=== PATIENT | female | born 1985 | race Caucasian/White ===

== ENCOUNTER → 2023-08-06 14:38 | Outpatient (REF) | payer BC, SELFPAY | LOC: HWRAD 14:38 | PROVIDERS: ATTENDING PHYSICIAN Nurse Practitioner Family | DX: M25.512 Pain in left shoulder (principal) | CPT/HCPCS: 73030 ==

== ENCOUNTER → 2023-10-24 13:40 | Outpatient (REF) | payer BC, SELFPAY | LOC: WDC 13:40 | PROVIDERS: ATTENDING PHYSICIAN Nurse Practitioner Family | DX: R92.8 Other abnormal and inconclusive findings on diagnostic imaging of breast (principal) | CPT/HCPCS: 76642 ==

== ENCOUNTER → 2023-12-20 08:02 | Outpatient (REF) | payer BC, SELFPAY | LOC: HWRAD 08:02 | PROVIDERS: ATTENDING PHYSICIAN Nurse Practitioner Family | DX: M54.50 Low back pain, unspecified (principal) | CPT/HCPCS: 72110 ==

== ENCOUNTER 2024-02-29 09:10 | Emergency (ER) | payer BC, SELFPAY ==
[2024-02-29 09:15] VITALS: BP 127/76
--- NOTE | 2024-02-29 10:04 | ED.GENMED ---
History of Present Illness
<Susanna Carballo PA-C - Last Filed: 02/29/24 18:03>
General
Chief Complaint: Problems
Source: patient
Exam Limitations: none
Time Seen by Provider: 02/29/24 10:01
Nursing documentation reviewed up to this point in time: agreed with
History of Present Illness
History of Present Illness:
39-year-old G2, P1 female with a past medical history of retained placenta presenting the emergency department today with concerns of vaginal bleeding and intermittent cramping for the past few days. Patient reports that this was
conceived through IVF but she also has 1 living child. Patient reports that she started to have bleeding and cramping and saw her fertility doctor Dr. Law who did ultrasound and noted a miscarriage approximately 5 days ago. She did receive
Cytotec 5 days ago. Patient states that she continued to have bleeding and passage of clots and this eventually subsided 3 days ago where she had a repeat ultrasound done which showed an empty uterus with a clots. She reports that yesterday, the
bleeding returned and got a lot worse and she started to have intermittent spells of dizziness and lightheadedness as well as shortness of breath. Patient does not have this constellation of symptoms currently but she states that they will come
intermittently. Patient denies cough, chest pain, upper respiratory symptoms, headache. Patient denies any syncopal episodes.
Review of Systems
<Susanna Carballo PA-C - Last Filed: 02/29/24 18:03>
Review of Systems
All Other Systems: ROS reviewed and negative except as documented in HPI and ROS
Phy Exam
<Susanna Carballo PA-C - Last Filed: 02/29/24 18:03>
Physical Exam
Physical Exam:
General: Patient is well appearing and in no acute distress; non-toxic
Skin: Warm and dry, no rashes or lesions
Head: Normocephalic, atraumatic
Eyes: Sclera non-icteric. EOMs intact. PERRLA.
Cardiac: Regular rate and rhythm, no murmurs
Peripheral Vascular: No lower extremity swelling or edema
Pulm: Normal respiratory effort, no wheezes, rales, rhonchi
Abdomen: No abdominal tenderness to palpation
Neuro: CN II-XII intact, no focal neurologic deficits.
Psychiatric: Appropriate mood and affect.
Course
<Susanna Carballo PA-C - Last Filed: 02/29/24 18:03>
Orders/Labs/Results
Orders:
Orders
02/29/24 10:29
US Pelvis W Transvag Combined Urgent
Comment:
Reason For Exam: misarriage mond, continued pain/bleeding
02/29/24 10:56
Beta HCG Quantitative Urgent
Is this a screen?: No
Complete Blood Count/With Diff Urgent
Comprehensive Metabolic Panel Urgent
02/29/24 11:03
Electrocardiogram (*1) Urgent
Reason for Study: Vertigo / Dizzy
EKG- Treatment ONCE
02/29/24 11:44
Type+Screen Urgent
BBK Wristband Number:
Abnormal Lab Results
02/29/24
10:56
RBC 3.70 L 10^6/uL
(4.20-5.40)
Hgb 11.3 L g/dL
(12.0-16.0)
Hct 31.7 L %
(37.0-47.0)
Absolute Neuts (auto) 6.6 H 10^3/uL
(1.4-6.5)
Absolute Lymphs (auto) 0.6 L 10^3/uL
(1.2-3.4)
Neutrophils % 87.3 H %
(42.2-75.2)
Lymphocytes % 7.9 L %
(20.5-51.1)
Alkaline Phosphatase 29 L U/L
(38-126)
02/29/24 10:56
02/29/24 10:56
Vital Signs
Initial and Last Documented VS:
Initial Vital Signs
Temp Pulse Resp BP Pulse Ox
99.8 F 92 16 127/76 100
02/29/24 09:15 02/29/24 09:15 02/29/24 09:15 02/29/24 09:15 02/29/24 09:15
Last Documented Vital Signs
Temp Pulse Resp BP Pulse Ox
99.8 F 80 18 95/56 99
02/29/24 09:15 02/29/24 14:53 02/29/24 14:53 02/29/24 14:53 02/29/24 14:53
Information
Weeks gestation: N/A
Location: N/A
<Christopher Craft MD - Last Filed: 02/29/24 14:11>
Orders/Labs/Results
Orders:
Orders
02/29/24 10:29
US Pelvis W Transvag Combined Urgent
Comment:
Reason For Exam: misarriage mond, continued pain/bleeding
02/29/24 10:56
Beta HCG Quantitative Urgent
Is this a screen?: No
Complete Blood Count/With Diff Urgent
Comprehensive Metabolic Panel Urgent
02/29/24 11:03
Electrocardiogram (*1) Urgent
Reason for Study: Vertigo / Dizzy
EKG- Treatment ONCE
02/29/24 11:44
Type+Screen Urgent
BBK Wristband Number:
Abnormal Lab Results
02/29/24
10:56
RBC 3.70 L 10^6/uL
(4.20-5.40)
Hgb 11.3 L g/dL
(12.0-16.0)
Hct 31.7 L %
(37.0-47.0)
Absolute Neuts (auto) 6.6 H 10^3/uL
(1.4-6.5)
Absolute Lymphs (auto) 0.6 L 10^3/uL
(1.2-3.4)
Neutrophils % 87.3 H %
(42.2-75.2)
Lymphocytes % 7.9 L %
(20.5-51.1)
Alkaline Phosphatase 29 L U/L
(38-126)
02/29/24 10:56
02/29/24 10:56
Vital Signs
Initial and Last Documented VS:
Initial Vital Signs
Temp Pulse Resp BP Pulse Ox
99.8 F 92 16 127/76 100
02/29/24 09:15 02/29/24 09:15 02/29/24 09:15 02/29/24 09:15 02/29/24 09:15
Last Documented Vital Signs
Temp Pulse Resp BP Pulse Ox
99.8 F 80 18 95/56 99
02/29/24 09:15 02/29/24 14:53 02/29/24 14:53 02/29/24 14:53 02/29/24 14:53
[place];Susanna Carballo PA-C - Last Filed: 02/29/24 18:03>
MDM/Problems Addressed
Differential Diagnosis Includes:
Differentials include miscarriage, retained products, bleeding disorder, vaginal abrasion/laceration
MDM/Problems Addressed:
39-year-old female G2, P1 with known miscarriage conceived through IVF presents to the emergency department today with vaginal bleeding for the past few days. Eventually started to subside this past week and she had an ultrasound noting the uterus
without a gestational sac. She then started to have a return of her bleeding, and noted intermittent spells of dizziness. Today on exam she is well-appearing in no acute distress, her vitals are stable. Will obtain blood work and type and screen,
will send for ultrasound.
Ultrasound reveals some thickening and slight heterogeneity of the endometrial cavity which may reflect hemorrhage or endometritis with retained products of conception being less likely. Patient has not had an episode of dizziness or
lightheadedness while here in the emergency department. Did discuss ultrasound findings with Dr. Law, patient's fertility doctor at [facility]. He is okay with patient being discharged without further intervention. Patient states that
she has a follow-up with the clinic next week. Patient is stable for discharge.
Chronic conditions affecting care:
n/a
Acute Exacerbation and/or Progression of Chronic Illness:
n/a
<Susanna Carballo PA-C - Last Filed: 02/29/24 18:03>
*Pulse Oximetry
Patient hypoxic: no
*EKG
Interpreted by ED Provider?: Yes
EKG Intrepretation Date: 02/29/24
Interpretation: normal
Comparison EKG: no comparison EKG present
Heart Rate: 69
Rate: normal
Rhythm: sinus
[place]: normal axis
Interval: normal interval
QRS Pattern: normal QRS
Ischemia: no ischemia
*Critical Care Note
Total Time (30-74mins, 75-104mins- exclusive of procedures): Not Applicable
Data Reviewed
Review of Other/Old Records Reveals: Records (Reviewed discharge summary from 07/28/2020, patient had vaginal delivery with retained placenta)
Source: patient and records
Prescriptions/Medications Considered But Not Given:
N/A
Further Testing Considered But Not Given:
N/A
<Susanna Carballo PA-C - Last Filed: 02/29/24 18:03>
Patient Management
Escalation/DeEscalation of care consider admission/obs:
Admit not indicated, patient stable for discharge
ED Attending Note
<Susanna Carballo PA-C - Last Filed: 02/29/24 18:03>
-
Portions of this chart may have been created with voice recognition software.� Occasional wrong word or��sound alike� substitutions may have occurred due to the inherent limitations of voice recognition software.
<Christopher Craft MD - Last Filed: 02/29/24 14:11>
ED Attending Note
Patient seen and examined by attending physician: Yes
I performed the substantive portion of visit, reviewed & personally made and approve the management plan that is documented in note by myself or HOLA.: Yes
ED Attending Note:
39-year-old female complaining of increased vaginal bleeding. Recent IVF. Had a miscarriage. Increased bleeding and pain overnight. Episode of lightheadedness and near syncope this morning x 3. Currently feeling better. Bleeding is decreased.
On exam patient is nontoxic in no distress. Warm and dry. Perfusing well. Lungs clear and equal. Heart regular rate and rhythm. Abdomen soft and nontender.
Patient is clinically stable and nontoxic. Labs are stable. EKG is stable. Ultrasound shows some thickening but with decreasing quantitative hCGs and patient feeling well patient can be discharged to follow-up. We will try to contact their
provider
Discharge Plan
Departure
Patient Disposition: Home (Routine Discharge)
Date of Disposition: 02/29/24
Time of Disposition: 14:08
Patient with high blood pressure during this ER visit?: Yes
Condition: Good
Discharge Problem:
Vaginal bleeding
Instructions: Miscarriage (DC), BLOOD PRESSURE
Prescriptions:
No Action
[id number] acid [ Multi] 1 EACH tablet
1 ea PO DAILY
ibuprofen 600 MG tablet
600 mg PO Q4HPRN PRN (Reason: moderate pain/cramps) Qty: 90 0RF
Referrals:
Farrukh Lord CRNP [Family Provider] -
Activity Restrictions/Additional Instructions:
Please return to the emergency department should you experience syncopal episodes, further episodes of dizziness, lightheadedness, fevers or chills, increasing abdominal pain, or any other signs or symptoms concerning to you.
Please follow-up with your OBGYN next week as scheduled.
Please follow-up with your primary care provider.
Interventions
Interventions:
*Risk Screen - Suicide Last Done: 02/29/24 09:15
*General Assessment Last Done: 02/29/24 09:15
*Neglect/Abuse Screening Last Done: 02/29/24 09:15
*ED COVID-19 Vaccine History Last Done: 02/29/24 10:57
*Nursing Disposition Last Done: 02/29/24 14:53
ED-Female Genitourinary Assessment Last Done: 02/29/24 13:00
Discharge Date and Time
Discharge Date/Time: 02/29/24 14:30
Print Language: K[place]
[2024-02-29 10:34] VITALS: BMI 24.5
[2024-02-29 11:03] VITALS: BP 109/64
[2024-02-29 11:05] LABS: % Basophils 0.7 % (0-2); % Eosinophils 0.5 % (0-6); % Immature Granulocytes 0.3 % (0-0.5); % Lymphocytes 7.9 % (20.5-51.1); % Monocytes 3.3 % (1.7-9.3); % Neutrophils 87.3 % (42.2-75.2); Absolute Basophils 0.1 10^3/uL (0-0.2); Absolute Lymphocytes 0.6 10^3/uL (1.2-3.4); Absolute Monocytes 0.3 10^3/uL (0.1-0.6); Absolute Neutrophils 6.6 10^3/uL (1.4-6.5); Hematocrit 31.7 % (37.0-47.0); Hemoglobin 11.3 g/dL (12.0-16.0); Mean Corp Hgb Conc. 35.6 g/dL (33.0-37.0); Mean Corpuscular Hgb 30.5 pg (27.0-31.0); Mean Corpuscular Volume 85.7 fL (81.0-99.0); Mean Platelet Volume 10.1 fL (7.4-10.4); Nucleated Red Blood Cells % 0 %; Platelet Count 232 10^3/uL (130-400); Red Cell Dist. Width 12.4 % (11.5-14.5); White Blood Cell Count 7.6 10^3/uL (4.8-10.8)
[2024-02-29 11:17] LABS: ALT (SGPT) 12 U/L (0-35); AST (SGOT) 22 U/L (14-36); Albumin 4.1 g/dl (3.5-5.0); Alkaline Phosphatase 29 U/L (38-126); Blood Urea Nitrogen 14 mg/dl (7-17); Calcium 9.2 mg/dl (8.4-10.2); Carbon Dioxide 24 mmol/L (22-30); Chloride 106 mmol/L (98-107); Estimated Creatinine Clearance 120 ml/min; Glucose 86 mg/dl (70-99); Potassium 4.3 mmol/L (3.5-5.1); Sodium 142 mmol/L (135-145); Total Bilirubin 0.2 mg/dl (0.2-1.3); Total Protein 6.7 g/dl (6.3-8.2); eGFR > 60.00
[2024-02-29 13:44] VITALS: BP 99/59; BP 99/70
[2024-02-29 14:53] VITALS: BP 95/56
== END 2024-02-29 14:30 | disposition home or self-care (01) ==
LOC: EMR 09:10
PROVIDERS: Physician Assistant; EMERGENCY PHYSICIAN Emergency Medicine; FAMILY PHYSICIAN Nurse Practitioner Family
DX: N93.9 Abnormal uterine and vaginal bleeding, unspecified (principal); Z87.59 Personal history of other complications of pregnancy, childbirth and the puerperium
CPT/HCPCS: 99284; 76830; 76856; 80053; 84702; 85025; 86850; 86900; 86901; 93005

== ENCOUNTER 2024-03-11 22:26 | Observation (INO) | payer BC, SELFPAY ==
[2024-03-11] VITALS (7 sets, daily range): BP systolic 88–122; BP diastolic 57–83; BMI 24.4
[2024-03-11 21:12] LABS: Hematocrit 17.6 % (37.0-47.0); Hemoglobin 6.3 g/dL (12.0-16.0); Mean Corp Hgb Conc. 35.8 g/dL (33.0-37.0); Mean Corpuscular Volume 83.8 fL (81.0-99.0); Mean Platelet Volume 9.6 fL (7.4-10.4); Platelet Count 324 10^3/uL (130-400)
[2024-03-11] MEDS: LR 1000 IV (21:18)
--- NOTE | 2024-03-11 21:24 | ED.GENMED ---
History of Present Illness
General
Chief Complaint: Vaginal Bleeding
Source: patient and records
Exam Limitations: none
Time Seen by Provider: 03/11/24 20:52
Nursing documentation reviewed up to this point in time: agreed with
History of Present Illness
History of Present Illness:
39-year-old female presents emergency department complaining of vaginal bleeding ongoing for the past 2 weeks, but worse over the past day. She is passing clots. It has gotten heavier over the past several hours. She had near fainting episodes.
Past History
Past History
ED Past Surgical History: Gynecological (egg retrieval, placenta removal)
Social History
Tobacco: Non-smoker
Alcohol: None
Drug: None
Personal:
Living: with family
Review of Systems
Review of Systems
Allergies reviewed?: Yes
All Other Systems: Not applicable
Constitutional: Reports fatigue
EENT: Reports no symptoms
Respiratory: Reports no symptoms
Cardiac: Reports syncope
ABD/GI: Reports no symptoms
: Reports no symptoms
Musculoskeletal: Reports no symptoms
Skin: Reports no symptoms
Neurological: Reports no symptoms
Endocrine: Reports no symptoms
Hematologic/Lymphatic: Reports bleeding
Psychiatric: Reports no symptoms
Phy Exam
Physical Exam
Physical Exam:
Physical Exam
General: Appears uncomfortable
Neck: supple. no meningeal signs. normal posterior pharynx
Heart: s1/s2 tachycardia, no murmur. equal radial
pulses.
HEENT: Pupils equal round reactive to light, EOMI
Lungs: no acute respiratory distress. clear bilaterally
Abdomen: normal bowel sounds. not tender. no CVAT
Neuro: alert and oriented. no focal neurological deficits cranial nerves II through XII intact
Skin: no rash, pale
Psychiatric: well kept. interactive and cooperative
Extremities: no edema. no calf tenderness. negative homans. good distal pulses
Genitourinary Exam Female
Exam Female: vaginal bleeding
Vaginal Exam: blood
Vaginal Bleeding: clots and severe
Visual exam of cervix: other (Unable to visualize due to bleeding)
Course
Orders/Labs/Results
Orders:
Orders
03/11/24 20:50
Electrocardiogram (*1) Urgent
Reason for Study: Tachycardia
EKG- Treatment ONCE
03/11/24 20:57
Test Result ONCE
03/11/24 20:58
HCG, Beta Quantitative [Beta HCG Quantitative] Urgent
Is this a screen?: No
03/11/24 20:59
Type+Screen Urgent
Complete Blood Count/No Diff Urgent
Comprehensive Metabolic Panel Urgent
03/11/24 21:11
Blood Bank Products [* Blood Bank Products] Urgent
Dr's Orders: 1 unit prbcs
Blood Bank Products: *Packed RBC Leuko(PRBC's)
Quantity: 1
Transfuse Today: Yes
Reason: Bleeding
03/11/24 21:17
Lactated Ringers [Lr] 1,000 ml IV BOLUS
03/11/24 22:00
Lactated Ringers [Lr] 1,000 ml IV 1,000 mls/hr
Abnormal Lab Results
03/11/24
20:59
RBC 2.10 L 10^6/uL
(4.20-5.40)
Hgb 6.3 L* g/dL
(12.0-16.0)
Hct 17.6 L* %
(37.0-47.0)
03/11/24 20:59
Vital Signs
Initial and Last Documented VS:
Initial Vital Signs
Pulse Resp BP Pulse Ox
117 19 96/82 100
03/11/24 20:50 03/11/24 20:50 03/11/24 20:50 03/11/24 20:50
Last Documented Vital Signs
Temp Pulse Resp BP Pulse Ox
99.6 F 117 19 96/82 100
03/11/24 20:57 03/11/24 20:50 03/11/24 20:50 03/11/24 20:50 03/11/24 20:50
MDM/Problems Addressed
Differential Diagnosis Includes:
Hemorrhagic shock, retained products
MDM/Problems Addressed:
39-year-old female with severe vaginal bleeding, possibly due to retained products. I spoke with METERS SUPERINTENDENT Dr. Newberry via [place] text for her to see patient in ED. Patient will likely need a D&C. 1 unit packed red blood cells ordered.
*Pulse Oximetry
Patient hypoxic: no
*EKG
Interpreted by ED Provider?: Yes
EKG Intrepretation Date: 03/11/24
EKG Intrepretation Time: 20:56
Interpretation: abnormal
Comparison EKG: changes noted
Heart Rate: 112
Rate: tachycardiac
Rhythm: sinus tachycardia
[place]: normal axis
Interval: normal interval
QRS Pattern: normal QRS
Ischemia: no ischemia
*Civil Engineering Draftsperson Interpretation
Rate: tachycardiac
Interpretation: abnormal
Heart Rate: 120
Rhythm: sinus tachycardia
*Critical Care Note
Total Time (30-74mins, 75-104mins- exclusive of procedures): 45
comment:
Critical care statement: A total of 45 minutes of critical care time was provided for this patient. This includes management of unstable vital signs, evaluation of the patient at bedside, reviewing the patient's pertinent medical records, discussion
with consultants, review of old EKGs and review of pertinent medical records. This time with separate from time utilized to perform the aforementioned documented procedures
Data Reviewed
Further Testing Considered But Not Given:
Ultrasound considered, patient with hypotension likely needing D&C.
Patient Management
Social determinants of health affecting care: Living situation and Strong social support
Discussion with other providers: Jacquard Loom Card Changer (METERS SUPERINTENDENT, Dr. Newberry)
Escalation/DeEscalation of care consider admission/obs:
Admit indicated
ED Attending Note
-
Portions of this chart may have been created with voice recognition software.� Occasional wrong word or��sound alike� substitutions may have occurred due to the inherent limitations of voice recognition software.
Discharge Plan
Departure
Patient Disposition: Admit
Date of Disposition: 03/11/24
Time of Disposition: 21:30
Presentation/result/management discussed w/ accepting MD/DO: Area Forester, Dr. Newberry
Patient with high blood pressure during this ER visit?: No
Condition: Fair
Discharge Problem:
Vaginal hemorrhage
Prescriptions:
No Action
[id number] acid [ Multi] 1 EACH tablet
1 ea PO DAILY
ibuprofen 600 MG tablet
600 mg PO Q4HPRN PRN (Reason: moderate pain/cramps) Qty: 90 0RF
Interventions
Interventions:
*Risk Screen - Suicide Last Done: 03/11/24 20:50
*General Assessment Last Done: 03/11/24 20:50
*Neglect/Abuse Screening Last Done: 03/11/24 20:50
ED-Female Genitourinary Assessment Last Done: 03/11/24 21:20
Discharge Date and Time
Print Language: CENTRAL AFRICAN
[2024-03-11 21:33] LABS: ALT (SGPT) 17 U/L (0-35); AST (SGOT) 30 U/L (14-36); Albumin 3.5 g/dl (3.5-5.0); Alkaline Phosphatase 31 U/L (38-126); Blood Urea Nitrogen 15 mg/dl (7-17); Calcium 8.7 mg/dl (8.4-10.2); Carbon Dioxide 20 mmol/L (22-30); Chloride 105 mmol/L (98-107); Estimated Creatinine Clearance 104 ml/min; Glucose 131 mg/dl (70-99); Potassium 3.7 mmol/L (3.5-5.1); Sodium 135 mmol/L (135-145); Total Bilirubin 0.1 mg/dl (0.2-1.3); Total Protein 5.7 g/dl (6.3-8.2); eGFR > 60.00
[2024-03-11 22:15] LABS: INR 1.05
--- NOTE | 2024-03-11 22:15 | W.SUR.PREOP ---
Pre-Operative Surgical Note
-
I have examined this patient prior to the performance of the procedure.
The patient's condition is unchanged from the time of the current History and
Physical and the patient is able to undergo the scheduled procedure.
H&P dictated (#[id number]).
Killian Newberry, DO
[2024-03-11 22:16] LABS: APTT 26.1 Sec (23.4-35.0)
[2024-03-12] VITALS (9 sets, daily range): BP systolic 84–109; BP diastolic 50–67
[2024-03-12] MEDS: LR 1000 IV (01:19)
--- NOTE | 2024-03-12 06:13 | PTCARENOTE ---
Pt BP at 0300 was 89/50, HR 69 pt had no vaginal bleeding, denied feeling lightheaded, and voided a total of 650 ml sine 0030. LR infusing at 100 ml/hr. Sent a message to Dr. Newberry, she was in the OR. At 0411, Dr. Newberry responded to draw morning
CBC at 0430. CBC drawn, sent to lab awaiting results. Pt verbalized she had a brief period of feeling lightheaded, but it resolved quickly. BP currently 95/59, HR 80.
[2024-03-12 06:32] LABS: % Basophils 0.3 % (0-2); % Immature Granulocytes 0.3 % (0-0.5); % Monocytes 0.7 % (1.7-9.3); % Neutrophils 92.7 % (42.2-75.2); Absolute Lymphocytes 0.5 10^3/uL (1.2-3.4); Absolute Monocytes 0.1 10^3/uL (0.1-0.6); Absolute Neutrophils 6.9 10^3/uL (1.4-6.5); Hematocrit 24.5 % (37.0-47.0); Hemoglobin 8.6 g/dL (12.0-16.0); Mean Corp Hgb Conc. 35.1 g/dL (33.0-37.0); Mean Corpuscular Hgb 30.9 pg (27.0-31.0); Mean Corpuscular Volume 88.1 fL (81.0-99.0); Mean Platelet Volume 10.1 fL (7.4-10.4); Nucleated Red Blood Cells % 0 %; Platelet Count 260 10^3/uL (130-400); Red Blood Cell Count 2.78 10^6/uL (4.20-5.40); Red Cell Dist. Width 12.2 % (11.5-14.5); White Blood Cell Count 7.5 10^3/uL (4.8-10.8)
--- NOTE | 2024-03-12 07:40 | W.PN.GYN ---
Today's Communication / Plan
-
-D/c home this morning
-iron, motrin, tylenol prn
-RTO 2wks. Limitations and Return precautions given.
Physician Note
-
This morning, pt doing much better. Bleeding is minimal. Not feeling dizzy or SOB. Has voided twice without issue. Not in pain.
VSS- BPs a little bit low overnight (see below), HR 70s-80s
Abd: soft, NTTP, ND
Extr: no calf ttp b/l
see labs below
A/P 39yo POD1 s/p suction D&C for acute hemorrhage from suspected retained POC after 1st trimester SAB.
Hgb improved this morning to 8.6, PLTs 260K. Asymptomtic.
-D/c home this morning
-iron, motrin, tylenol prn
-RTO 2wks. Limitations and Return precautions given.
Killian Newberry, DO
Vital Signs / Labs
-
Vital Signs and Labs:
Temp Pulse Resp BP Pulse Ox
98.1 F 80 16 95/59 100
03/12/24 06:00 03/12/24 06:00 03/12/24 06:00 03/12/24 06:00 03/12/24 00:15
03/12/24 04:50
03/11/24 20:59
03/11/24 03/12/24
20:59 04:50
RBC 2.10 L 2.78 L
Hgb 6.3 L* 8.6 L D
Hct 17.6 L* 24.5 L
Absolute Neuts (auto) 6.9 H
Absolute Lymphs (auto) 0.5 L
Neutrophils % 92.7 H
Lymphocytes % 6.0 L
Monocytes % 0.7 L
Carbon Dioxide 20 L
Glucose 131 H
Total Bilirubin 0.1 L
Alkaline Phosphatase 31 L
Total Protein 5.7 L
Crossmatch IS Only See Detail
--- NOTE | 2024-03-12 07:47 | W.DS.TRANS ---
DC Summary - Buckle Sewer Machine
-
Discharge Instructions:
Discharge Diagnosis/Procedures Suspected retained products of conception, s/p
Suction D&C; Acute hemorrhagic anemia, s/p blood
transfusion
Diet As tolerated,Regular
Activity Other activity
Additional Activity Nothing in the vagina until cleared by your
diamond sander. Avoid strenuous activity for the
next few days as you recover. Advance activity
as tolerated.
Driving Restrictions No driving for 1 week
Bathing Restrictions None
Instructions:
Stand-Alone Forms:
Changes to Home Medications: No
Discharge Medications:
DC Medications w/original date entered in [employer]
acetaminophen 325 mg tablet 650 mg (2 x 325 mg) PO Q4HPRN PRN mild pain #0 tabs 03/12/24
ferrous sulfate 325 mg (65 mg iron) tablet (FeroSul) 325 mg PO DAILY #0 tabs 03/12/24
ibuprofen 200 mg tablet 600 mg (3 x 200 mg) PO Q6HPRN PRN cramping/pain #0 tabs 03/12/24
Home Medication Changes
Pending Results: No
Total time spent discharging patient (in min): 20
[2024-03-12] MEDS: FEOSOL 325 MG PO (08:10)
== END 2024-03-12 09:09 | disposition home or self-care (01) ==
LOC: LDRP 22:26
PROVIDERS: ADMITTING PHYSICIAN Obstetrics & Gynecology; EMERGENCY PHYSICIAN Emergency Medicine
DX: O03.1 Delayed or excessive hemorrhage following incomplete spontaneous abortion (principal); N93.9 Abnormal uterine and vaginal bleeding, unspecified; R00.0 Tachycardia, unspecified; O03.31 Shock following incomplete spontaneous abortion; I95.9 Hypotension, unspecified; D62 Acute posthemorrhagic anemia
CPT/HCPCS: 59812; 36430; 88305; 76856; 80053; 84702; 85025; 85027; 85610; 85730; 86850; 86900; 86901; 86920; 93005; 96360; 99291; P9016

== ENCOUNTER → 2024-03-21 06:48 | Outpatient (REF) | payer BC, SELFPAY ==
[2024-03-21 09:31] LABS: % Basophils 2.1 % (0-2); % Eosinophils 6.8 % (0-6); % Immature Granulocytes 0.2 % (0-0.5); % Monocytes 8.9 % (1.7-9.3); Absolute Basophils 0.1 10^3/uL (0-0.2); Absolute Eosinophils 0.4 10^3/uL (0-0.7); Absolute Lymphocytes 1.6 10^3/uL (1.2-3.4); Absolute Monocytes 0.5 10^3/uL (0.1-0.6); Absolute Neutrophils 2.7 10^3/uL (1.4-6.5); Hematocrit 26.9 % (37.0-47.0); Hemoglobin 8.8 g/dL (12.0-16.0); Mean Corp Hgb Conc. 32.7 g/dL (33.0-37.0); Mean Corpuscular Hgb 28.8 pg (27.0-31.0); Mean Corpuscular Volume 87.9 fL (81.0-99.0); Mean Platelet Volume 9.8 fL (7.4-10.4); Nucleated Red Blood Cells % 0 %; Platelet Count 385 10^3/uL (130-400); Red Blood Cell Count 3.06 10^6/uL (4.20-5.40); Red Cell Dist. Width 12.9 % (11.5-14.5); White Blood Cell Count 5.3 10^3/uL (4.8-10.8)
[2024-03-21 09:57] LABS: ALT (SGPT) 14 U/L (0-35); AST (SGOT) 26 U/L (14-36); Albumin 3.9 g/dl (3.5-5.0); Alkaline Phosphatase 41 U/L (38-126); Blood Urea Nitrogen 11 mg/dl (7-17); Calcium 9.1 mg/dl (8.4-10.2); Carbon Dioxide 26 mmol/L (22-30); Chloride 105 mmol/L (98-107); Glucose 91 mg/dl (70-99); HDL Cholesterol 71 mg/dl; Iron 36 ug/dl (37-170); LDL Cholesterol, Calculated 95 mg/dl; Sodium 139 mmol/L (135-145); Total Bilirubin 0.3 mg/dl (0.2-1.3); Total Cholesterol 176 mg/dl (50-199); Total Protein 6.4 g/dl (6.3-8.2); Triglyceride 53 mg/dl (10-149); Very Low Density Lipoprotein 10 mg/dl (0-30); eGFR > 60.00
[2024-03-21 10:06] LABS: Percent Saturation 8 % (20-50); Total Iron Binding Capacity 415 ug/dl (265-497)
[2024-03-21 10:35] LABS: TSH Reflex To Free T4 2.07 uIU/ml (0.47-4.68)
[2024-03-21 10:40] LABS: Ferritin 8.4 ng/ml (6.24-137)
== END ==
LOC: HWLAB 06:48
PROVIDERS: ATTENDING PHYSICIAN Nurse Practitioner Family
DX: D64.9 Anemia, unspecified (principal); Z00.00 Encounter for general adult medical examination without abnormal findings; Z23 Encounter for immunization; Z13.31 Encounter for screening for depression
CPT/HCPCS: 36415; 80053; 80061; 82728; 83540; 83550; 84443; 85025

== ENCOUNTER → 2024-04-07 15:09 | Outpatient (REF) | payer BC, SELFPAY ==
[2024-04-07 14:11] LABS: % Basophils 1.2 % (0-2); % Eosinophils 1.2 % (0-6); % Immature Granulocytes 0.4 % (0-0.5); % Lymphocytes 25.8 % (20.5-51.1); % Monocytes 7.4 % (1.7-9.3); Absolute Basophils 0.1 10^3/uL (0-0.2); Absolute Eosinophils 0.1 10^3/uL (0-0.7); Absolute Lymphocytes 1.5 10^3/uL (1.2-3.4); Absolute Monocytes 0.4 10^3/uL (0.1-0.6); Absolute Neutrophils 3.6 10^3/uL (1.4-6.5); Hematocrit 31.7 % (37.0-47.0); Hemoglobin 9.9 g/dL (12.0-16.0); Mean Corp Hgb Conc. 31.2 g/dL (33.0-37.0); Mean Corpuscular Hgb 27.3 pg (27.0-31.0); Mean Corpuscular Volume 87.6 fL (81.0-99.0); Mean Platelet Volume 10.1 fL (7.4-10.4); Nucleated Red Blood Cells % 0 %; Platelet Count 291 10^3/uL (130-400); Red Blood Cell Count 3.62 10^6/uL (4.20-5.40); Red Cell Dist. Width 13.6 % (11.5-14.5); White Blood Cell Count 5.7 10^3/uL (4.8-10.8)
== END ==
LOC: OIDL 15:09
PROVIDERS: ATTENDING PHYSICIAN Internal Medicine Hematology & Oncology
DX: D50.9 Iron deficiency anemia, unspecified (principal)
CPT/HCPCS: 85025

== ENCOUNTER → 2024-04-14 16:13 | Outpatient (REF) | payer BC, SELFPAY ==
[2024-04-14 13:30] LABS: % Basophils 0.9 % (0-2); % Eosinophils 0.3 % (0-6); % Immature Granulocytes 0.3 % (0-0.5); % Monocytes 7.5 % (1.7-9.3); Absolute Basophils 0.1 10^3/uL (0-0.2); Absolute Lymphocytes 1.4 10^3/uL (1.2-3.4); Absolute Monocytes 0.7 10^3/uL (0.1-0.6); Absolute Neutrophils 6.5 10^3/uL (1.4-6.5); Hematocrit 36.4 % (37.0-47.0); Hemoglobin 11.3 g/dL (12.0-16.0); Mean Corpuscular Hgb 27.9 pg (27.0-31.0); Mean Corpuscular Volume 89.9 fL (81.0-99.0); Mean Platelet Volume 10.1 fL (7.4-10.4); Nucleated Red Blood Cells % 0 %; Platelet Count 284 10^3/uL (130-400); Red Blood Cell Count 4.05 10^6/uL (4.20-5.40); Red Cell Dist. Width 14.6 % (11.5-14.5); White Blood Cell Count 8.7 10^3/uL (4.8-10.8)
== END ==
LOC: OIDL 16:13
PROVIDERS: ATTENDING PHYSICIAN Internal Medicine Hematology & Oncology
DX: D50.9 Iron deficiency anemia, unspecified (principal)
CPT/HCPCS: 85025

== ENCOUNTER → 2024-04-24 07:36 | Outpatient (REF) | payer BC, SELFPAY | LOC: WDC 07:36 | PROVIDERS: ATTENDING PHYSICIAN Nurse Practitioner Family | DX: R92.8 Other abnormal and inconclusive findings on diagnostic imaging of breast (principal); Z12.31 Encounter for screening mammogram for malignant neoplasm of breast | CPT/HCPCS: 76642; 77063; 77067 ==

== ENCOUNTER → 2024-05-26 07:42 | Outpatient (REF) | payer BC, SELFPAY ==
[2024-05-26 09:21] LABS: % Basophils 1.5 % (0-2); % Eosinophils 2.4 % (0-6); % Immature Granulocytes 0.2 % (0-0.5); % Lymphocytes 10.9 % (20.5-51.1); % Monocytes 4.4 % (1.7-9.3); % Neutrophils 80.6 % (42.2-75.2); Absolute Basophils 0.1 10^3/uL (0-0.2); Absolute Eosinophils 0.2 10^3/uL (0-0.7); Absolute Lymphocytes 0.9 10^3/uL (1.2-3.4); Absolute Monocytes 0.4 10^3/uL (0.1-0.6); Absolute Neutrophils 6.8 10^3/uL (1.4-6.5); Hematocrit 40.1 % (37.0-47.0); Hemoglobin 13.2 g/dL (12.0-16.0); Mean Corp Hgb Conc. 32.9 g/dL (33.0-37.0); Mean Corpuscular Hgb 28.4 pg (27.0-31.0); Mean Corpuscular Volume 86.4 fL (81.0-99.0); Nucleated Red Blood Cells % 0 %; Platelet Count 266 10^3/uL (130-400); Red Blood Cell Count 4.64 10^6/uL (4.20-5.40); Red Cell Dist. Width 14.7 % (11.5-14.5); White Blood Cell Count 8.4 10^3/uL (4.8-10.8)
[2024-05-26 09:39] LABS: Iron 84 ug/dl (37-170)
[2024-05-26 09:48] LABS: Percent Saturation 28 % (20-50); Total Iron Binding Capacity 300 ug/dl (265-497)
[2024-05-26 10:15] LABS: Ferritin 80.8 ng/ml (6.24-137)
== END ==
LOC: HWLAB 07:42
PROVIDERS: ATTENDING PHYSICIAN Internal Medicine Hematology & Oncology; FAMILY PHYSICIAN Nurse Practitioner Family
DX: D50.9 Iron deficiency anemia, unspecified (principal)
CPT/HCPCS: 36415; 82728; 83540; 83550; 85025

== ENCOUNTER → 2025-04-21 07:47 | Outpatient (REF) | payer BC, SELFPAY | LOC: WDC 07:47 | PROVIDERS: ATTENDING PHYSICIAN Nurse Practitioner Family | DX: R92.8 Other abnormal and inconclusive findings on diagnostic imaging of breast (principal) | CPT/HCPCS: 76642 ==